=== PATIENT | male | born 1980 | race Caucasian/White ===

== ENCOUNTER → 2019-12-15 11:06 | Outpatient (BNVA) | payer OTHER, SELFPAY | PROVIDERS: Family Provider Family Medicine; PCP Family Medicine; Visit Provider Emergency Medicine | DX: R55 Syncope and collapse (principal); G40.909 Epilepsy, unspecified, not intractable, without status epilepticus; R42 Dizziness and giddiness | CPT/HCPCS: 36416; 82962 ==